=== PATIENT | female | born 1930 | race Caucasian/White ===

== ENCOUNTER 2017-10-07 14:55 | Emergency (ER) | payer MEDICARE, OTHER ==
[~2017-10-07] VITALS: Ht 142.2 cm; Wt 40.9 kg
[~2017-10-07 14:55] MED LIST: ALDACTONE 25MG25 M1 PO; ASPIR-LOW81 MG PO; BYSTOLIC10 MG PO; CALCIUM + D 6001 TA1 PO; CALCIUM 1200 W/1 SGL PO; DIOVAN 80MG80 MG PO; HCTZ12.5TAB PO; NORCO 325 MG-51 TAB PO; OCUVITE1 TA1 PO; PROAIR HFA0.09 MG/AC IH; PROVENTIL0.09 MG/A1 IH; QVAR0.04 MG/AC IH; QVAR0.08 MG/AC IH; TEKTURNA300 MG PO; VITAMIN C BUFF500 MG PO; VITAMIN C500 MG PO
[2017-10-07 14:59] VITALS: TEMP 97.8
[2017-10-07 15:11] LABS: BASO # 0.1 (0.0-0.2); BASO % 0.9 % (0.0-2.0); EOS # 0.5 (0.0-0.7); EOS % 4.2 % (0-4.0); GRAN # 7.5 (1.4-6.5); GRAN % 59.9 % (42.2-75.2); HEMATOCRIT 39.7 % (37.0-47.0); HEMOGLOBIN 13.5 g/dl (12.5-16.0); LYMPH # 2.8 (1.2-3.4); LYMPH % 22.5 % (20.0-51.0); MEAN CELL VOLUME 92 fl (80.0-100.0); MEAN CORPUSCULAR HEMOGLOBIN 31 pg (27.0-31.0); MEAN CORPUSCULAR HGB CONC 34 g/dl (33.0-37.0); MEAN PLATELET VOLUME 8.9 fl (7.4-10.4); MONO # 1.5 (0.1-0.6); MONO % 11.8 % (1.7-9.3); PLATELET COUNT 520 K/mm3 (130-400); RED BLOOD COUNT 4.34 M/mm3 (4.10-5.30); REDCELL DISTRIBUTION WIDTH-CV 13.8 % (11.5-14.5)
[2017-10-07 15:27] LABS: COLLECTION METHOD CATHETER
[2017-10-07 15:29] LABS: ALANINE AMINOTRANSFERASE 55 U/L (9-52); ALBUMIN 4.6 gm/dL (3.5-5.0); ALKALINE PHOSPHATASE 76 U/L (50-136); ANION GAP 18 mmol/L (7-16); AST,SGOT 73 U/L (15-37); BILIRUBIN,TOTAL 0.9 mg/dL (0.0-1.0); BLOOD UREA NITROGEN 21 mg/dL (7-17); CALCIUM 10.2 mg/dL (8.4-10.2); CARBON DIOXIDE 22 mmol/L (22-30); CHLORIDE 92 mmol/L (98-107); CREATINE KINASE 221 U/L (30-135); CREATININE, serum 0.65 mg/dL (0.52-1.25); GLUCOSE 140 mg/dL (74-106); POTASSIUM 3.6 mmol/L (3.4-5.0); SODIUM 132 mmol/L (137-145); TOTAL PROTEIN 8.3 gm/dL (6.4-8.2)
[2017-10-07 15:47] LABS: MUCOUS Present /lpf; PH 6 (5-8); SQUAMOUS EPITHELIAL 0-2 /hpf; URINE APPEARANCE Clear; URINE BACTERIA None Seen /hpf; URINE BILIRUBIN Negative (NEGATIVE); URINE BLOOD Negative (NEGATIVE); URINE COLOR Yellow; URINE GLUCOSE Negative (NEGATIVE); URINE KETONE Negative (NEGATIVE); URINE LEUKOCYTE ESTERASE Negative (NEGATIVE); URINE NITRATE Negative (NEGATIVE); URINE PROTEIN(semi-quant) 2+ (NEGATIVE); URINE RBC 0-2 /hpf; URINE UROBILINOGEN Negative (NEGATIVE)
[2017-10-07 15:57] LABS: TROPONIN-I < 0.012 ng/mL (0.000-0.034)
[2017-10-07 16:15] VITALS: BP 166/110; PULSE 78
[2017-10-07 16:24] LABS: PARTIAL THROMBOPLASTIN TIME 28.3 SECONDS (26.0-37.0)
== END 2017-10-07 16:35 | disposition other institution (70) ==
LOC: COL.ER 14:55
PROVIDERS: Emergency Medicine
DX: I21.29 ST elevation (STEMI) myocardial infarction involving other sites (principal); I16.0 Hypertensive urgency; J45.909 Unspecified asthma, uncomplicated
CPT/HCPCS: A4314; J1644; J7040

== ENCOUNTER 2018-04-18 07:12 | Observation (INO) | payer MEDICARE, OTHER ==
[~2018-04-18] VITALS: Ht 149.9 cm; Wt 40.4 kg
[2018-04-18 07:56] LABS: BASO # 0.1 (0.0-0.2); BASO % 0.5 % (0.0-2.0); EOS # 0.2 (0.0-0.7); EOS % 1.4 % (0-4.0); GRAN # 8.4 (1.4-6.5); GRAN % 80.6 % (42.2-75.2); HEMOGLOBIN 12.1 g/dl (12.5-16.0); LYMPH # 0.7 (1.2-3.4); LYMPH % 6.9 % (20.0-51.0); MEAN CELL VOLUME 90 fl (80.0-100.0); MEAN CORPUSCULAR HEMOGLOBIN 31 pg (27.0-31.0); MEAN CORPUSCULAR HGB CONC 35 g/dl (33.0-37.0); MEAN PLATELET VOLUME 8.8 fl (7.4-10.4); MONO % 9.9 % (1.7-9.3); PLATELET COUNT 538 K/mm3 (130-400); RED BLOOD COUNT 3.85 M/mm3 (4.10-5.30); REDCELL DISTRIBUTION WIDTH-CV 12.6 % (11.5-14.5)
[2018-04-18 07:57] LABS: HEMATOCRIT 34.7 % (37.0-47.0)
[2018-04-18 08:00] LABS: PROTHROMBIN TIME 11.3 SECONDS (9.7-12.8)
[2018-04-18 08:06] LABS: CALCIUM 9.6 mg/dL (8.4-10.2); CREATININE, serum 0.52 mg/dL (0.52-1.25); POTASSIUM 3.8 mmol/L (3.4-5.0)
[2018-04-18] MEDS ORDERED: PROAIR HFA0.09 MG/AC INH (09:03)
[2018-04-18] MEDS ORDERED: ASPIRIN 81M81 MG/TA2 PO (09:03)
[2018-04-18] MEDS ORDERED: LUMIGAN 2.5 ML2.5 M1 OU (09:04)
[2018-04-18] MEDS ORDERED: QVAR REDIHALE10.6 G1 INH (09:04)
[2018-04-18] MEDS ORDERED: COREG 3.123.125 MG/T PO (09:05)
[2018-04-18] MEDS ORDERED: MICROZIDE12.5 MG PO (09:05)
[2018-04-18] MEDS ORDERED: CALCIUM CARB W/1 TA1 PO (09:05)
[2018-04-18] MEDS ORDERED: KEPPRA 500MG500 MG PO (09:06)
[2018-04-18] MEDS ORDERED: COZAAR100 MG PO (09:06)
[2018-04-18] MEDS ORDERED: SPIRIVA RE2.5 MCG/Ac INH (09:07)
[2018-04-18] MEDS ORDERED: OCUVITE1 TA1 PO (09:07)
[2018-04-18] MEDS ORDERED: KEPPRA750 MG PO (09:08)
[2018-04-18] MEDS ORDERED: NATURAL C500 MG PO (09:08)
[2018-04-18 09:38] VITALS: BP 146/87; PULSE 62
[2018-04-18 10:09] LABS: BASO % 0.3 % (0.0-2.0); EOS # 0.1 (0.0-0.7); EOS % 0.5 % (0-4.0); GRAN # 12.6 (1.4-6.5); GRAN % 85.9 % (42.2-75.2); HEMOGLOBIN 10.6 g/dl (12.5-16.0); LYMPH # 0.8 (1.2-3.4); LYMPH % 5.2 % (20.0-51.0); MEAN CELL VOLUME 91 fl (80.0-100.0); MEAN CORPUSCULAR HEMOGLOBIN 32 pg (27.0-31.0); MEAN CORPUSCULAR HGB CONC 35 g/dl (33.0-37.0); MEAN PLATELET VOLUME 8.7 fl (7.4-10.4); MONO # 1.1 (0.1-0.6); MONO % 7.5 % (1.7-9.3); RED BLOOD COUNT 3.37 M/mm3 (4.10-5.30); REDCELL DISTRIBUTION WIDTH-CV 12.6 % (11.5-14.5)
[2018-04-18 10:11] LABS: HEMATOCRIT 30.5 % (37.0-47.0); PLATELET COUNT 409 K/mm3 (130-400)
[2018-04-18 11:40] VITALS: BP 179/81; PULSE 67; TEMP 97.8
[2018-04-18 15:41] VITALS: BP 137/93; PULSE 73; TEMP 97.9
[2018-04-18 18:15] VITALS: BP 117/66; BP 150/91
[2018-04-18 18:16] VITALS: BP 71/36
[2018-04-18 19:31] VITALS: BP 139/62; PULSE 84; TEMP 98.2
[2018-04-18 20:01] LABS: BASO % 0.2 % (0.0-2.0); EOS % 0.2 % (0-4.0); GRAN # 10.2 (1.4-6.5); LYMPH # 0.7 (1.2-3.4); LYMPH % 5.9 % (20.0-51.0); MEAN CELL VOLUME 90 fl (80.0-100.0); MEAN CORPUSCULAR HGB CONC 35 g/dl (33.0-37.0); MONO # 1.1 (0.1-0.6); MONO % 9.1 % (1.7-9.3); PLATELET COUNT 390 K/mm3 (130-400); RED BLOOD COUNT 3.08 M/mm3 (4.10-5.30); REDCELL DISTRIBUTION WIDTH-CV 12.6 % (11.5-14.5)
[2018-04-18 20:03] LABS: HEMATOCRIT 27.7 % (37.0-47.0); HEMOGLOBIN 9.8 g/dl (12.5-16.0); MEAN CORPUSCULAR HEMOGLOBIN 32 pg (27.0-31.0)
[2018-04-19 03:03] VITALS: BP 166/79; PULSE 75; TEMP 98.2
[2018-04-19 07:00] LABS: BASO # 0.1 (0.0-0.2); BASO % 0.5 % (0.0-2.0); EOS % 0.4 % (0-4.0); GRAN # 7.6 (1.4-6.5); GRAN % 80.5 % (42.2-75.2); LYMPH # 0.7 (1.2-3.4); LYMPH % 7.5 % (20.0-51.0); MEAN CELL VOLUME 90 fl (80.0-100.0); MEAN CORPUSCULAR HGB CONC 35 g/dl (33.0-37.0); MONO % 10.7 % (1.7-9.3); PLATELET COUNT 406 K/mm3 (130-400); RED BLOOD COUNT 3.06 M/mm3 (4.10-5.30); REDCELL DISTRIBUTION WIDTH-CV 12.7 % (11.5-14.5)
[2018-04-19 07:05] LABS: HEMATOCRIT 27.4 % (37.0-47.0); HEMOGLOBIN 9.7 g/dl (12.5-16.0); MEAN CORPUSCULAR HEMOGLOBIN 32 pg (27.0-31.0)
[2018-04-19 07:09] LABS: CALCIUM 8.5 mg/dL (8.4-10.2); CREATININE, serum 0.4 mg/dL (0.52-1.25)
[2018-04-19 07:18] LABS: POTASSIUM 2.9 mmol/L (3.4-5.0)
[2018-04-19 08:53] VITALS: BP 129/65; PULSE 92; TEMP 97.6; TEMP 98.2
[2018-04-19 12:29] VITALS: BP 135/72; PULSE 73; TEMP 97.7
[2018-04-19 16:31] LABS: CALCIUM 8.5 mg/dL (8.4-10.2); CREATININE, serum 0.5 mg/dL (0.52-1.25); MAGNESIUM 1.6 mg/dL (1.6-2.3); POTASSIUM 4.9 mmol/L (3.4-5.0)
[2018-04-19 16:46] VITALS: BP 160/85; PULSE 75; TEMP 98.3
[2018-04-19 16:58] VITALS: BP 164/81; BP 188/80; PULSE 78; PULSE 80; TEMP 98.3
[2018-04-19 17:01] LABS: THYROID STIMULATING HORMONE 1.79 uIU/mL (0.465-4.680)
[2018-04-19 19:29] VITALS: BP 138/58; PULSE 77; TEMP 98.2
[2018-04-20 04:47] VITALS: BP 162/97; PULSE 91; TEMP 98.5
[2018-04-20 06:13] LABS: BASO # 0.1 (0.0-0.2); BASO % 0.7 % (0.0-2.0); EOS # 0.1 (0.0-0.7); EOS % 1.1 % (0-4.0); GRAN # 8.2 (1.4-6.5); GRAN % 77.7 % (42.2-75.2); LYMPH # 0.8 (1.2-3.4); LYMPH % 7.8 % (20.0-51.0); MEAN CELL VOLUME 92 fl (80.0-100.0); MEAN CORPUSCULAR HGB CONC 34 g/dl (33.0-37.0); MONO # 1.3 (0.1-0.6); MONO % 12.2 % (1.7-9.3); PLATELET COUNT 380 K/mm3 (130-400); RED BLOOD COUNT 2.96 M/mm3 (4.10-5.30); REDCELL DISTRIBUTION WIDTH-CV 12.8 % (11.5-14.5)
[2018-04-20 06:18] LABS: HEMATOCRIT 27.3 % (37.0-47.0); HEMOGLOBIN 9.4 g/dl (12.5-16.0); MEAN CORPUSCULAR HEMOGLOBIN 32 pg (27.0-31.0)
[2018-04-20 06:22] LABS: CREATININE, serum 0.36 mg/dL (0.52-1.25)
[2018-04-20 08:22] VITALS: BP 153/74; PULSE 84; TEMP 97.6
[2018-04-20 12:01] VITALS: BP 174/79; PULSE 75; TEMP 97.2
== END 2018-04-20 14:10 | disposition home or self-care (01) ==
LOC: COL.ER 07:12 → SURG 10:07
PROVIDERS: Emergency Medicine; Hospitalist; Internal Medicine; Physician Assistant
DX: S01.91XA Laceration without foreign body of unspecified part of head, initial encounter (principal); W18.30XA Fall on same level, unspecified, initial encounter; Y93.01 Activity, walking, marching and hiking; Y92.009 Unspecified place in unspecified non-institutional (private) residence as the place of occurrence of the external cause; D50.0 Iron deficiency anemia secondary to blood loss (chronic); I95.1 Orthostatic hypotension; E87.1 Hypo-osmolality and hyponatremia; E87.8 Other disorders of electrolyte and fluid balance, not elsewhere classified; D72.828 Other elevated white blood cell count; J45.20 Mild intermittent asthma, uncomplicated; I10 Essential (primary) hypertension; M81.0 Age-related osteoporosis without current pathological fracture; R56.9 Unspecified convulsions; E87.6 Hypokalemia; R91.1 Solitary pulmonary nodule; Z79.82 Long term (current) use of aspirin
CPT/HCPCS: 99222-AI; G0378; G8978-GP; G8979-GP; G8987-GO; G8988-GO; J7030

== ENCOUNTER 2018-05-03 02:03 | Emergency (ER) | payer MEDICARE, OTHER ==
[~2018-05-03] VITALS: Ht 147.3 cm; Wt 39.1 kg
[~2018-05-03 02:03] MED LIST changes: +ASPIRIN 81M81 MG/TA2 PO; +CALCIUM CARB W/1 TA1 PO; +COREG 3.123.125 MG/T PO; +COZAAR100 MG PO; +KEPPRA 500MG500 MG PO; +KEPPRA750 MG PO; +LUMIGAN 2.5 ML2.5 M1 OU; +MICROZIDE12.5 MG PO; +NATURAL C500 MG PO; +PROAIR HFA0.09 MG/AC INH; +QVAR REDIHALE10.6 G1 INH; +SPIRIVA RE2.5 MCG/Ac INH
[2018-05-03 02:05] VITALS: TEMP 97.4
[2018-05-03 02:40] LABS: HEMATOCRIT 24.9 % (37.0-47.0); HEMOGLOBIN 8.3 g/dl (12.5-16.0)
[2018-05-03 04:00] VITALS: BP 171/91; PULSE 74
== END 2018-05-03 04:04 | disposition home or self-care (01) ==
LOC: COL.ER 02:03
PROVIDERS: Physician Assistant
DX: S01.01XA Laceration without foreign body of scalp, initial encounter (principal); Z79.82 Long term (current) use of aspirin; W18.39XA Other fall on same level, initial encounter; Y92.009 Unspecified place in unspecified non-institutional (private) residence as the place of occurrence of the external cause

== ENCOUNTER 2018-06-20 18:23 | Emergency (ER) | payer MEDICARE, OTHER | END 2018-06-20 20:45 | disposition home or self-care (01) | LOC: COL.ER 18:23 | DX: S41.112A Laceration without foreign body of left upper arm, initial encounter (principal); S00.83XA Contusion of other part of head, initial encounter; S80.01XA Contusion of right knee, initial encounter; E87.1 Hypo-osmolality and hyponatremia; I10 Essential (primary) hypertension; G43.909 Migraine, unspecified, not intractable, without status migrainosus; J44.9 Chronic obstructive pulmonary disease, unspecified; Z79.82 Long term (current) use of aspirin; W01.0XXA Fall on same level from slipping, tripping and stumbling without subsequent striking against object, initial encounter; Y92.009 Unspecified place in unspecified non-institutional (private) residence as the place of occurrence of the external cause ==